=== PATIENT | male | born 1995 | race Caucasian/White ===

== ENCOUNTER 2021-03-20 03:23 | Inpatient (IN) | payer OTHER, BC ==
[2021-03-20] MEDS ORDERED: Boostrix 0.5 ML (Tdap) VIAL ONE (03:30)
[2021-03-20] MEDS ORDERED: Propofol 1,000 MG/100 ML VIAL IV ONE (03:34)
[2021-03-20 04:04] LABS: ALT (SGPT) 341 U/L (8-55); AST (SGOT) 403 U/L (5-34); Acetaminophen Less than 6.0 mcg/mL (10.0-30.0); Albumin 4.1 g/dL (3.5-5.0); Alcohol 295 mg/dL (Less than 10); Alkaline Phosphatase 91 U/L (40-110); Anion Gap 18 mmol/L (10-20); BUN (Urea Nitrogen) 10 mg/dL (8.9-20.6); Bilirubin, Total 0.5 mg/dL (0.2-1.2); Calc. Creatinine Clearance 0 mL/min (70-130); Calcium 8.1 mg/dL (7.8-10.44); Carbon Dioxide 18 mmol/L (22-29); Chloride 103 mmol/L (98-107); Globulin 2.8 g/dL (2.4-3.5); Glucose 250 mg/dL (70-105); INR-International Normal Ratio 1.1; Lipase 120 U/L (8-78); Potassium 3.4 mmol/L (3.5-5.1); Protein, Total 6.9 g/dL (6.0-8.3); Prothrombin Time 13.9 sec (12.0-14.7); Salicylate Less than 8.0 mg/dL (15.0-30.0); Sodium 136 mmol/L (136-145)
[2021-03-20 04:05] LABS: PTT 27.2 sec (22.9-36.1)
[2021-03-20] MEDS ORDERED: CEFAZOLIN 1 GM VIAL ONE (04:08)
[2021-03-20 04:16] LABS: Band 26 % (5-11); Hemoglobin 16.1 g/dL (14.0-18.0); Lymphocytes 12 % (21-51); MDiff Complete? YES; Mean Corpuscular HGB CONC 35.1 g/dL (32.0-36.0); Mean Corpuscular Hemoglobin 32.9 pg (27.0-31.0); Mean Corpuscular Volume 93.7 fL (78.0-98.0); Mean Platelet Volume 8.6 fL (7.4-10.4); Monocytes 8 % (0-10); Neutrophil 53 % (42-75); Platelet Count 256 thou/uL (130-400); RBC Distribution Width 12.4 % (11.5-14.5); White Blood Cell (WBC) Count 22.8 thou/uL (4.8-10.8)
[2021-03-20] MEDS ORDERED: Dextrose 5% in Water 1,000 ML IV PRN (04:20)
[2021-03-20] MEDS ORDERED: Dextrose 50% Abboject 50 ML SYRINGE SLOW IVP PRN (04:20)
[2021-03-20] MEDS ORDERED: Fentanyl 100 MCG/2 ML VIAL ONE (04:23)
[2021-03-20 04:29] LABS: Phosphorus 5.7 mg/dL (2.3-4.7)
[2021-03-20 04:31] LABS: Magnesium 1.8 mg/dL (1.6-2.6)
[2021-03-20 04:31] LABS: Amphetamine Not Detected (NotDetected); Barbiturates Screen Not Detected (NotDetected); Benzodiazepine Screen Not Detected (NotDetected); Cocaine Metabolite Screen Not Detected (NotDetected); Methadone Not Detected (NotDetected); Methamphetamine Not Detected (NotDetected); Opiate Screen Not Detected (NotDetected); Oxycodone Screen Not Detected (NotDetected); Phencyclidine (PCP) Not Detected (NotDetected); THC/Cannabinoid Screen Not Detected (NotDetected); Tricyclic Screen Not Detected (NotDetected)
[2021-03-20] MEDS ORDERED: Sodium Bicarb 50 MEQ/50 ML Abboject 8.4% SYRINGE ONE (04:31)
[2021-03-20 04:33] LABS: Bacteria/HPF None Seen HPF (None Seen); Bilirubin Negative (Negative); Blood, Urine 3+ (Negative); Clarity Clear (Clear); Glucose, Urine (Dipstick) Greater than 1000 mg/dL (Negative); Ketone, Urine Negative (Negative); Leukocyte Negative Leu/uL (Negative); Nitrite Negative (Negative); Protein, Urine (Dipstick) 70 mg/dL (Neg-Trace); RBC/HPF 0-3 HPF (0-3); Specific Gravity, Urine 1.009 (1.002-1.036); Squamous Epithelial 0-3 HPF (0-3); Urobilinogen Normal mg/dL (Less than 2)
[2021-03-20 04:37] LABS: Urine Culture Reflex Yes Yes
[2021-03-20 04:43] LABS: Actual Bicarbonate (HCO3a) 17.1 mEq/L (22-28); Analyzer IN Cardio ER; Base Excess (BEa) -9.8 mEq/L (-2.0 to +3.0); CO2 Tension 41.3 mmHg (35.0-45.0); Calcium, Ionized (arterial) 1.05 mmol/L (1.12-1.30); Carboxyhemoglobin (COHb) 1.3 gm% (0.0-3.0); Hemoglobin (Hb) 15.8 g/dL (14.0-18.0); O2 Tension (PaO2), arterial 147.9 mmHg (80.0-100.0); Potassium - ABG Lab 3.48 mmol/L (3.70-5.30)
[2021-03-20 04:45] LABS: ALV-art Gradient 513.475 mmHg (0-20); Puncture Site RRA; pH, Arterial 7.24 (7.35-7.45)
[2021-03-20] MEDS ORDERED: Ventilator Sedation Protocol 1 EACH FS SCH (04:45)
[2021-03-20] MEDS ORDERED: Calcium Chloride 13.6 MEQ in Sodium Chloride 0.9% 100 ML IVPB SCH (05:00)
[2021-03-20] MEDS ORDERED: Magnesium 2 GM/50 ML 2 GM in Premix Bag 1 BAG IVPB SCH (05:00)
[2021-03-20] MEDS ORDERED: manNITOL 20% 500 ML ONE ×2 (05:04→05:09)
[2021-03-20] MEDS ORDERED: Fentanyl BOLUS 250 ML IVPB PRN (05:15)
[2021-03-20] MEDS ORDERED: Propofol BOLUS 1,000 MG/100 ML VIAL IV PRN (05:15)
[2021-03-20] MEDS ORDERED: Fentanyl CADD 100 ML ONE ×2 (05:40→20:19)
[2021-03-20] MEDS: Fentanyl CADD 100 ML IV SCH ×2 (05:44→20:32)
[2021-03-20] MEDS ORDERED: CEFAZOLIN 1 GM VIAL SLOW IVP SCH (06:00)
[2021-03-20 06:40] LABS: Lactic Acid 5.2 mmol/L (0.5-2.2)
[2021-03-20] MEDS: Potassium Chloride 20 MEQ in Premix Bag 1 BAG IVPB SCH ×2 (08:00→08:35)
[2021-03-20] MEDS: Sodium Chloride 0.9% 1,000 ML IV SCH ×3 (08:01→19:58)
[2021-03-20] MEDS: Acetaminophen 500 MG TAB PO SCH ×3 (08:01→17:22)
[2021-03-20 08:18] LABS: Base Excess (BEa) -7.6 mEq/L (-2.0 to +3.0); CO2 Tension 37.2 mmHg (35.0-45.0); Calcium, Ionized (arterial) 1.19 mmol/L (1.12-1.30); Carboxyhemoglobin (COHb) 0.5 gm% (0.0-3.0); O2 Tension (PaO2), arterial 277.7 mmHg (80.0-100.0)
[2021-03-20 08:22] LABS: Puncture Site RRA
[2021-03-20] MEDS: ceFAZolin 1 GM/D5W 1 GM in Premix Bag 1 BAG IVPB SCH ×3 (09:11→22:31)
[2021-03-20 09:34] LABS: SARS-CoV-2 NAA Rapid Test Not Detected (NotDetected)
[2021-03-20] MEDS ORDERED: Mannitol 12.5 GM/50 ML SLOW IVP SCH (09:45)
[2021-03-20] MEDS: Senokot S 8.6-50 MG TAB PO SCH ×2 (09:47→19:44)
[2021-03-20] MEDS: Famotidine/PF 20 mg/2ml Vial SLOW IVP SCH ×2 (09:47→19:43)
[2021-03-20] MEDS: Polyethylene Glycol 3350 17 GM Packet PO SCH (09:47)
[2021-03-20 11:04] LABS: Sodium 139 mmol/L (136-145)
[2021-03-20 11:09] LABS: Lactic Acid 4.8 mmol/L (0.5-2.2)
[2021-03-20] MEDS: Propofol 1,000 MG/100 ML VIAL IV PRN ×5 (11:36→19:58)
[2021-03-20] MEDS: Sodium Chloride 3% 500 ML IVPB SCH (12:04)
[2021-03-20] MEDS ORDERED: Norepinephrine 8 MG/0.9% NS 250 ML IVPB SCH (13:00)
[2021-03-20 15:21] LABS: Sodium 143 mmol/L (136-145)
[2021-03-20] MEDS: Mannitol 12.5 GM/50 ML SLOW IVP SCH ×2 (15:26→22:33)
[2021-03-20 18:22] LABS: Sodium 148 mmol/L (136-145)
[2021-03-20] MEDS: Ondansetron PF 4 MG/2 ML Vial IVP PRN (19:45)
[2021-03-20 21:39] LABS: Sodium 153 mmol/L (136-145)
[2021-03-20] MEDS: Dextrose 5% in Water 1,000 ML IV SCH (23:15)
[2021-03-21] MEDS: Acetaminophen 500 MG TAB PO SCH ×5 (00:46→23:34)
[2021-03-21] MEDS: Oxazepam 10 MG CAP PO SCH ×3 (00:47→18:40)
[2021-03-21] MEDS: cefTRIAXone\\ROCEPHIN 2 GM in Sodium Chloride 0.9% 100 ML IVPB SCH (00:47)
[2021-03-21] MEDS: Propofol 1,000 MG/100 ML VIAL IV PRN ×8 (00:51→23:37)
[2021-03-21 02:20] LABS: #Lymphocytes 1.4 thou/uL (1.20-3.40); #Monocytes 0.6 thou/uL (0.11-0.59); %Basophils 0.3 % (0.0-1.0); %Eosinophils 0.1 % (0.0-10.0); %Lymphocytes 14.1 % (21.0-51.0); %Monocytes 5.5 % (0.0-10.0); Hemoglobin 15.2 g/dL (14.0-18.0); Mean Corpuscular HGB CONC 34.9 g/dL (32.0-36.0); Mean Corpuscular Hemoglobin 33.1 pg (27.0-31.0); Mean Corpuscular Volume 94.8 fL (78.0-98.0); Mean Platelet Volume 8.8 fL (7.4-10.4); Platelet Count 172 thou/uL (130-400); RBC Distribution Width 12.7 % (11.5-14.5); Red Blood Cell (RBC) Count 4.59 mill/uL (4.70-6.10)
[2021-03-21 03:20] LABS: Hemoglobin 14.6 g/dL (14.0-18.0); Mean Corpuscular HGB CONC 34.6 g/dL (32.0-36.0); Mean Corpuscular Hemoglobin 32.8 pg (27.0-31.0); Mean Corpuscular Volume 94.9 fL (78.0-98.0); Mean Platelet Volume 8.7 fL (7.4-10.4); Platelet Count 171 thou/uL (130-400); RBC Distribution Width 12.5 % (11.5-14.5); Red Blood Cell (RBC) Count 4.45 mill/uL (4.70-6.10); White Blood Cell (WBC) Count 9.4 thou/uL (4.8-10.8)
[2021-03-21] MEDS: Sodium Chloride 3% 500 ML IVPB SCH (03:20)
[2021-03-21] MEDS: Mannitol 12.5 GM/50 ML SLOW IVP SCH (04:00)
[2021-03-21 04:03] LABS: Band 6 % (5-11); Lymphocytes 18 % (21-51); MDiff Complete? YES; Monocytes 1 % (0-10); Neutrophil 75 % (42-75)
[2021-03-21 05:09] LABS: Anion Gap 14 mmol/L (10-20); BUN (Urea Nitrogen) 12 mg/dL (8.9-20.6); CK (CPK) 3278 U/L (30-200); Calc. Creatinine Clearance 136 mL/min (70-130); Calcium 10.3 mg/dL (7.8-10.44); Carbon Dioxide 23 mmol/L (22-29); Chloride 132 mmol/L (98-107); Glucose 123 mg/dL (70-105); Magnesium 2.8 mg/dL (1.6-2.6); Phosphorus Less than 1.0 mg/dL (2.3-4.7); Potassium 3.7 mmol/L (3.5-5.1); Sodium 165 mmol/L (136-145)
[2021-03-21] MEDS ORDERED: Fentanyl 100 MCG/2 ML VIAL SLOW IVP PRN (05:09)
[2021-03-21] MEDS: Fentanyl CADD 100 ML IV SCH ×2 (05:23→14:14)
[2021-03-21] MEDS: Lactated Ringer's 1,000 ML IV SCH ×2 (09:48→16:42)
[2021-03-21 10:01] LABS: Sodium 169 mmol/L (136-145)
[2021-03-21] MEDS ORDERED: Vecuronium Bromide 50 MG in Sodium Chloride 0.9% 250 ML 250 ML IV SCH (10:30)
[2021-03-21] MEDS ORDERED: Saccharomyces boulardii 250 MG CAP PO SCH (11:00)
[2021-03-21] MEDS: Famotidine/PF 20 mg/2ml Vial SLOW IVP SCH ×2 (11:08→21:38)
[2021-03-21] MEDS: Folic Acid 1 MG TAB PO SCH (11:21)
[2021-03-21] MEDS: Thiamine 100 MG TAB PO SCH (11:21)
[2021-03-21] MEDS: Senokot S 8.6-50 MG TAB PO SCH ×2 (11:21→21:38)
[2021-03-21] MEDS: Multivitamin W/ Minerals 1 TAB PO SCH (11:21)
[2021-03-21] MEDS: Polyethylene Glycol 3350 17 GM Packet PO SCH (11:23)
[2021-03-21 11:58] LABS: Anion Gap 15 mmol/L (10-20); BUN (Urea Nitrogen) 14 mg/dL (8.9-20.6); Calc. Creatinine Clearance 124 mL/min (70-130); Carbon Dioxide 19 mmol/L (22-29); Chloride 139 mmol/L (98-107); Glucose 126 mg/dL (70-105); Potassium 3.1 mmol/L (3.5-5.1); Sodium 170 mmol/L (136-145)
[2021-03-21 16:32] LABS: Sodium 168 mmol/L (136-145)
[2021-03-21] MEDS ORDERED: Lactated Ringer's 1,000 ML IV SCH (17:00)
[2021-03-21 19:37] LABS: Sodium 169 mmol/L (136-145)
[2021-03-21] MEDS: hydrALAZINE 20 MG/ML VIAL SLOW IVP PRN (19:41)
[2021-03-21 20:19] LABS: #Lymphocytes 1.4 thou/uL (1.20-3.40); #Monocytes 0.5 thou/uL (0.11-0.59); #Neutrophils 10.1 thou/uL (1.40-6.50); %Basophils 0.4 % (0.0-1.0); %Eosinophils 0.1 % (0.0-10.0); %Lymphocytes 11.5 % (21.0-51.0); %Monocytes 3.8 % (0.0-10.0); %Neutrophils 84.2 % (42.0-75.0); Hemoglobin 14.5 g/dL (14.0-18.0); Mean Corpuscular Hemoglobin 32.7 pg (27.0-31.0); Mean Corpuscular Volume 96.2 fL (78.0-98.0); Mean Platelet Volume 9.1 fL (7.4-10.4); Platelet Count 159 thou/uL (130-400); RBC Distribution Width 12.9 % (11.5-14.5); Red Blood Cell (RBC) Count 4.43 mill/uL (4.70-6.10)
[2021-03-21 20:30] LABS: Anion Gap 20 mmol/L (10-20); BUN (Urea Nitrogen) 14 mg/dL (8.9-20.6); Calc. Creatinine Clearance 132 mL/min (70-130); Carbon Dioxide 20 mmol/L (22-29); Chloride 133 mmol/L (98-107); Glucose 168 mg/dL (70-105); Magnesium 2.3 mg/dL (1.6-2.6); Potassium 4.8 mmol/L (3.5-5.1); Sodium 168 mmol/L (136-145)
[2021-03-21] MEDS: Ondansetron PF 4 MG/2 ML Vial IVP PRN (21:38)
[2021-03-21 23:06] LABS: Sodium 167 mmol/L (136-145)
[2021-03-21 23:28] LABS: CKMB 2.5 ng/mL (0-6.6)
[2021-03-22] MEDS: Oxazepam 10 MG CAP PO SCH ×3 (00:09→17:37)
[2021-03-22] MEDS: cefTRIAXone\\ROCEPHIN 2 GM in Sodium Chloride 0.9% 100 ML IVPB SCH (00:59)
[2021-03-22 02:21] LABS: Sodium 167 mmol/L (136-145)
[2021-03-22 05:18] LABS: #Lymphocytes 1.5 thou/uL (1.20-3.40); #Monocytes 0.3 thou/uL (0.11-0.59); #Neutrophils 7.4 thou/uL (1.40-6.50); %Basophils 0.2 % (0.0-1.0); %Eosinophils 0.4 % (0.0-10.0); %Lymphocytes 16.6 % (21.0-51.0); %Neutrophils 79.9 % (42.0-75.0); Hemoglobin 13.8 g/dL (14.0-18.0); Mean Corpuscular HGB CONC 33.1 g/dL (32.0-36.0); Mean Corpuscular Hemoglobin 31.4 pg (27.0-31.0); Mean Corpuscular Volume 94.9 fL (78.0-98.0); Mean Platelet Volume 8.8 fL (7.4-10.4); Platelet Count 149 thou/uL (130-400); RBC Distribution Width 12.7 % (11.5-14.5); Red Blood Cell (RBC) Count 4.38 mill/uL (4.70-6.10); White Blood Cell (WBC) Count 9.2 thou/uL (4.8-10.8)
[2021-03-22] MEDS: Propofol 1,000 MG/100 ML VIAL IV PRN (05:26)
[2021-03-22] MEDS: Acetaminophen 500 MG TAB PO SCH ×3 (05:26→17:37)
[2021-03-22] MEDS: Fentanyl CADD 100 ML IV SCH ×2 (05:26→20:30)
[2021-03-22 05:42] LABS: Anion Gap 16 mmol/L (10-20); BUN (Urea Nitrogen) 11 mg/dL (8.9-20.6); Calc. Creatinine Clearance 142 mL/min (70-130); Carbon Dioxide 22 mmol/L (22-29); Chloride 134 mmol/L (98-107); Glucose 126 mg/dL (70-105); Potassium 3.5 mmol/L (3.5-5.1); Sodium 168 mmol/L (136-145)
[2021-03-22] MEDS: Lactated Ringer's 1,000 ML IV SCH (05:44)
[2021-03-22 05:49] LABS: CK (CPK) 1814 U/L (30-200); Magnesium 2.3 mg/dL (1.6-2.6)
[2021-03-22 05:58] LABS: Phosphorus 1.3 mg/dL (2.3-4.7)
[2021-03-22] MEDS ORDERED: Dextrose 5% in Water 1,000 ML IV SCH ×2 (08:15→13:00)
[2021-03-22] MEDS ORDERED: D5 1/2 NS w/20 mEq KCL 1,000 ML IV SCH (08:30)
[2021-03-22 10:01] LABS: Sodium 170 mmol/L (136-145)
[2021-03-22] MEDS: Multivitamin W/ Minerals 1 TAB PO SCH (10:04)
[2021-03-22] MEDS: Polyethylene Glycol 3350 17 GM Packet PO SCH (10:04)
[2021-03-22] MEDS: Senokot S 8.6-50 MG TAB PO SCH ×2 (10:04→20:12)
[2021-03-22] MEDS: Famotidine/PF 20 mg/2ml Vial SLOW IVP SCH ×2 (10:04→20:12)
[2021-03-22] MEDS: Thiamine 100 MG TAB PO SCH (10:05)
[2021-03-22] MEDS: Saccharomyces boulardii 250 MG CAP PO SCH (10:05)
[2021-03-22] MEDS: Folic Acid 1 MG TAB PO SCH (10:05)
[2021-03-22 14:00] LABS: Anion Gap 16 mmol/L (10-20); BUN (Urea Nitrogen) 11 mg/dL (8.9-20.6); Calc. Creatinine Clearance 131 mL/min (70-130); Calcium 9.8 mg/dL (7.8-10.44); Carbon Dioxide 25 mmol/L (22-29); Chloride 132 mmol/L (98-107); Glucose 148 mg/dL (70-105); Potassium 3.5 mmol/L (3.5-5.1); Sodium 169 mmol/L (136-145)
[2021-03-22] MEDS ORDERED: Piperacillin/Tazobactam 3.375 GM in Dextrose 5% in Water 100 ML IVPB SCH (15:15)
[2021-03-22 15:34] LABS: Hemoglobin 14.3 g/dL (14.0-18.0); Mean Corpuscular HGB CONC 34.7 g/dL (32.0-36.0); Mean Corpuscular Hemoglobin 33.1 pg (27.0-31.0); Mean Corpuscular Volume 95.4 fL (78.0-98.0); Mean Platelet Volume 8.7 fL (7.4-10.4); Platelet Count 152 thou/uL (130-400); RBC Distribution Width 12.6 % (11.5-14.5); Red Blood Cell (RBC) Count 4.33 mill/uL (4.70-6.10); White Blood Cell (WBC) Count 8.6 thou/uL (4.8-10.8)
[2021-03-22 15:44] LABS: INR-International Normal Ratio 1.2; Prothrombin Time 15.7 sec (12.0-14.7)
[2021-03-22 15:45] LABS: PTT 36.9 sec (22.9-36.1)
[2021-03-22 15:50] LABS: Lactic Acid 2.1 mmol/L (0.5-2.2)
[2021-03-22 15:58] LABS: CKMB 2.2 ng/mL (0-6.6)
[2021-03-22 16:15] LABS: Actual Bicarbonate (HCO3a) 23.7 mEq/L (22-28); Base Excess (BEa) -0.5 mEq/L (-2.0 to +3.0); CO2 Tension 37.7 mmHg (35.0-45.0); Calcium, Ionized (arterial) 1.23 mmol/L (1.12-1.30); Carboxyhemoglobin (COHb) 0.7 gm% (0.0-3.0); Hemoglobin (Hb) 14.7 g/dL (14.0-18.0); O2 Tension (PaO2), arterial 69.7 mmHg (80.0-100.0); Potassium - ABG Lab 3.56 mmol/L (3.70-5.30); pH, Arterial 7.42 (7.35-7.45)
[2021-03-22 16:16] LABS: ALV-art Gradient 168.375 mmHg (0-20); Puncture Site RBA
[2021-03-22 16:19] LABS: ALT (SGPT) 108 U/L (8-55); AST (SGOT) 54 U/L (5-34); Albumin 3.9 g/dL (3.5-5.0); Alkaline Phosphatase 52 U/L (40-110); Anion Gap 16 mmol/L (10-20); BUN (Urea Nitrogen) 11 mg/dL (8.9-20.6); Bilirubin, Direct 0.5 mg/dL (0.1-0.3); Bilirubin, Total 1.1 mg/dL (0.2-1.2); Calc. Creatinine Clearance 122 mL/min (70-130); Calcium 9.4 mg/dL (7.8-10.44); Carbon Dioxide 26 mmol/L (22-29); Chloride 134 mmol/L (98-107); Globulin 2.4 g/dL (2.4-3.5); Glucose 150 mg/dL (70-105); Lipase 15 U/L (8-78); Magnesium 2.1 mg/dL (1.6-2.6); Phosphorus 2.8 mg/dL (2.3-4.7); Potassium 3.6 mmol/L (3.5-5.1); Protein, Total 6.3 g/dL (6.0-8.3); Sodium 172 mmol/L (136-145)
[2021-03-22 16:26] LABS: Band 61 % (5-11); Lymphocytes 21 % (21-51); MDiff Complete? YES; Monocytes 3 % (0-10); Neutrophil 13 % (42-75); Platelet Morphology Comment Appears Adequate; RBC Morphology Normal; Reactive Lymphocytes 2 % (0-10)
[2021-03-22 19:33] LABS: Hemoglobin 14.2 g/dL (14.0-18.0); Mean Corpuscular HGB CONC 34.6 g/dL (32.0-36.0); Mean Corpuscular Hemoglobin 33.1 pg (27.0-31.0); Mean Corpuscular Volume 95.7 fL (78.0-98.0); Mean Platelet Volume 9.1 fL (7.4-10.4); Platelet Count 166 thou/uL (130-400); RBC Distribution Width 12.6 % (11.5-14.5); Red Blood Cell (RBC) Count 4.29 mill/uL (4.70-6.10); White Blood Cell (WBC) Count 9.4 thou/uL (4.8-10.8)
[2021-03-22 19:43] LABS: Hemoglobin A1c 4.6 % (4.0-6.0)
[2021-03-22 19:44] LABS: INR-International Normal Ratio 1.2; Prothrombin Time 15.5 sec (12.0-14.7)
[2021-03-22 19:45] LABS: PTT 32.6 sec (22.9-36.1)
[2021-03-22] MEDS: hydrALAZINE 20 MG/ML VIAL SLOW IVP PRN (19:45)
[2021-03-22 19:51] LABS: Band 28 % (5-11); Lymphocytes 19 % (21-51); MDiff Complete? YES; Monocytes 2 % (0-10); Neutrophil 45 % (42-75); Reactive Lymphocytes 5 % (0-10)
[2021-03-22 20:08] LABS: CKMB 2.5 ng/mL (0-6.6)
[2021-03-22 20:14] LABS: ALT (SGPT) 99 U/L (8-55); AST (SGOT) 49 U/L (5-34); Albumin 3.7 g/dL (3.5-5.0); Alkaline Phosphatase 51 U/L (40-110); Anion Gap 17 mmol/L (10-20); BUN (Urea Nitrogen) 12 mg/dL (8.9-20.6); Bilirubin, Direct 0.6 mg/dL (0.1-0.3); Bilirubin, Total 1.5 mg/dL (0.2-1.2); Calc. Creatinine Clearance 111 mL/min (70-130); Calcium 9.7 mg/dL (7.8-10.44); Carbon Dioxide 23 mmol/L (22-29); Chloride 132 mmol/L (98-107); Globulin 3.1 g/dL (2.4-3.5); Glucose 156 mg/dL (70-105); Lipase 13 U/L (8-78); Magnesium 2.1 mg/dL (1.6-2.6); Phosphorus 2.7 mg/dL (2.3-4.7); Potassium 3.3 mmol/L (3.5-5.1); Protein, Total 6.8 g/dL (6.0-8.3); Sodium 169 mmol/L (136-145)
[2021-03-22] MEDS: Piperacillin/Tazobactam 3.375 GM in Dextrose 5% in Water 100 ML IVPB SCH (20:26)
[2021-03-22] MEDS ORDERED: Norepinephrine 8 MG/0.9% NS 250 ML ONE (21:52)
[2021-03-22 22:34] LABS: Actual Bicarbonate (HCO3a) 25.2 mEq/L (22-28); Base Excess (BEa) 0.2 mEq/L (-2.0 to +3.0); CO2 Tension 42.1 mmHg (35.0-45.0); Calcium, Ionized (arterial) 1.18 mmol/L (1.12-1.30); Carboxyhemoglobin (COHb) 0.1 gm% (0.0-3.0); Hemoglobin (Hb) 14.2 g/dL (14.0-18.0); Potassium - ABG Lab 3.35 mmol/L (3.70-5.30)
[2021-03-22 22:36] LABS: ALV-art Gradient 486.375 mmHg (0-20); Puncture Site Arterial Line
[2021-03-22] MEDS: Insulin Regular 300 UNITS/3 ML VIAL SC PRN (23:23)
[2021-03-23] MEDS: Acetaminophen 500 MG TAB PO SCH ×5 (00:24→23:01)
[2021-03-23] MEDS: hydrALAZINE 20 MG/ML VIAL SLOW IVP PRN ×2 (00:25→04:59)
[2021-03-23] MEDS: Ondansetron PF 4 MG/2 ML Vial IVP PRN (00:25)
[2021-03-23] MEDS: Oxazepam 10 MG CAP PO SCH (00:26)
[2021-03-23] MEDS: Dextrose 5% in Water 1,000 ML IV SCH (01:10)
[2021-03-23 03:42] LABS: Hemoglobin 13.3 g/dL (14.0-18.0); Mean Corpuscular HGB CONC 34.4 g/dL (32.0-36.0); Mean Corpuscular Hemoglobin 33.2 pg (27.0-31.0); Mean Corpuscular Volume 96.3 fL (78.0-98.0); Mean Platelet Volume 9.1 fL (7.4-10.4); Platelet Count 166 thou/uL (130-400); RBC Distribution Width 12.6 % (11.5-14.5); Red Blood Cell (RBC) Count 4.02 mill/uL (4.70-6.10); White Blood Cell (WBC) Count 8.9 thou/uL (4.8-10.8)
[2021-03-23 03:51] LABS: ALT (SGPT) 88 U/L (8-55); AST (SGOT) 43 U/L (5-34); Albumin 3.5 g/dL (3.5-5.0); Alkaline Phosphatase 47 U/L (40-110); Anion Gap 11 mmol/L (10-20); BUN (Urea Nitrogen) 13 mg/dL (8.9-20.6); Bilirubin, Direct 0.5 mg/dL (0.1-0.3); Bilirubin, Total 1.2 mg/dL (0.2-1.2); Calc. Creatinine Clearance 117 mL/min (70-130); Calcium 9.2 mg/dL (7.8-10.44); Carbon Dioxide 29 mmol/L (22-29); Chloride 129 mmol/L (98-107); Globulin 3.1 g/dL (2.4-3.5); Glucose 187 mg/dL (70-105); Lipase 14 U/L (8-78); Magnesium 1.9 mg/dL (1.6-2.6); Phosphorus 3.7 mg/dL (2.3-4.7); Potassium 3.2 mmol/L (3.5-5.1); Protein, Total 6.6 g/dL (6.0-8.3); Sodium 166 mmol/L (136-145)
[2021-03-23 04:07] LABS: INR-International Normal Ratio 1.2; Prothrombin Time 15.2 sec (12.0-14.7)
[2021-03-23 04:08] LABS: PTT 34.4 sec (22.9-36.1)
[2021-03-23 04:21] LABS: CKMB 2.4 ng/mL (0-6.6)
[2021-03-23] MEDS: Ondansetron PF 4 MG/2 ML Vial IVP SCH ×4 (04:59→21:16)
[2021-03-23 05:06] LABS: Band 40 % (5-11); Lymphocytes 16 % (21-51); MDiff Complete? YES; Monocytes 2 % (0-10); Neutrophil 42 % (42-75)
[2021-03-23] MEDS: Insulin Regular 300 UNITS/3 ML VIAL SC PRN (05:09)
[2021-03-23] MEDS: Piperacillin/Tazobactam 3.375 GM in Dextrose 5% in Water 100 ML IVPB SCH ×3 (05:15→20:13)
[2021-03-23 06:19] LABS: Bacteria/HPF None Seen HPF (None Seen); Bilirubin Negative (Negative); Blood, Urine 3+ (Negative); Clarity Clear (Clear); Glucose, Urine (Dipstick) Greater than 1000 mg/dL (Negative); Ketone, Urine Negative (Negative); Leukocyte Negative Leu/uL (Negative); Nitrite Negative (Negative); Protein, Urine (Dipstick) 100 mg/dL (Neg-Trace); Specific Gravity, Urine 1.037 (1.002-1.036); Squamous Epithelial 0-3 HPF (0-3); Urobilinogen Normal mg/dL (Less than 2); WBC/HPF 0-3 HPF (0-3)
[2021-03-23] MEDS: D5 1/2 NS w/20 mEq KCL 1,000 ML IV SCH ×3 (07:34→21:16)
[2021-03-23 07:51] LABS: Actual Bicarbonate (HCO3a) 20.2 mEq/L (22-28); Base Excess (BEa) -3.6 mEq/L (-2.0 to +3.0); CO2 Tension 32.7 mmHg (35.0-45.0); Calcium, Ionized (arterial) 1.17 mmol/L (1.12-1.30); Carboxyhemoglobin (COHb) 0.2 gm% (0.0-3.0); Hemoglobin (Hb) 13.6 g/dL (14.0-18.0); O2 Tension (PaO2), arterial 328.5 mmHg (80.0-100.0); Potassium - ABG Lab 3.24 mmol/L (3.70-5.30); pH, Arterial 7.41 (7.35-7.45)
[2021-03-23 07:56] LABS: ALV-art Gradient 343.625 mmHg (0-20); Puncture Site Arterial Line
[2021-03-23] MEDS: Multivitamin W/ Minerals 1 TAB PO SCH (09:05)
[2021-03-23] MEDS: Saccharomyces boulardii 250 MG CAP PO SCH (09:05)
[2021-03-23] MEDS: Folic Acid 1 MG TAB PO SCH (09:05)
[2021-03-23] MEDS: Thiamine 100 MG TAB PO SCH (09:05)
[2021-03-23] MEDS: Famotidine/PF 20 mg/2ml Vial SLOW IVP SCH ×2 (09:05→21:16)
[2021-03-23] MEDS: Polyethylene Glycol 3350 17 GM Packet PO SCH (09:06)
[2021-03-23] MEDS: Senokot S 8.6-50 MG TAB PO SCH ×2 (09:06→20:25)
[2021-03-23 10:43] LABS: Hemoglobin 12.9 g/dL (14.0-18.0); Mean Corpuscular HGB CONC 32.9 g/dL (32.0-36.0); Mean Corpuscular Hemoglobin 31.6 pg (27.0-31.0); Mean Corpuscular Volume 96.3 fL (78.0-98.0); Mean Platelet Volume 9.1 fL (7.4-10.4); Platelet Count 185 thou/uL (130-400); RBC Distribution Width 12.7 % (11.5-14.5); Red Blood Cell (RBC) Count 4.09 mill/uL (4.70-6.10); White Blood Cell (WBC) Count 9.7 thou/uL (4.8-10.8)
[2021-03-23 10:44] LABS: Actual Bicarbonate (HCO3a) 25.1 mEq/L (22-28); Base Excess (BEa) 0.2 mEq/L (-2.0 to +3.0); CO2 Tension 41.7 mmHg (35.0-45.0); Calcium, Ionized (arterial) 1.13 mmol/L (1.12-1.30); Carboxyhemoglobin (COHb) 0.3 gm% (0.0-3.0); Hemoglobin (Hb) 13.4 g/dL (14.0-18.0); O2 Tension (PaO2), arterial 327.3 mmHg (80.0-100.0); Potassium - ABG Lab 3.41 mmol/L (3.70-5.30)
[2021-03-23 10:51] LABS: INR-International Normal Ratio 1.3; PTT 38.9 sec (22.9-36.1); Prothrombin Time 16.4 sec (12.0-14.7)
[2021-03-23 10:55] LABS: Puncture Site Arterial Line
[2021-03-23 10:56] LABS: ALV-art Gradient 333.575 mmHg (0-20)
[2021-03-23 10:58] LABS: Band 33 % (5-11); Lymphocytes 14 % (21-51); MDiff Complete? YES; Monocytes 5 % (0-10); Neutrophil 48 % (42-75); Platelet Morphology Comment Appears Adequate; RBC Morphology Normal
[2021-03-23 11:04] LABS: CKMB 2.9 ng/mL (0-6.6)
[2021-03-23 11:13] LABS: ALT (SGPT) 80 U/L (8-55); AST (SGOT) 45 U/L (5-34); Albumin 3.5 g/dL (3.5-5.0); Alkaline Phosphatase 47 U/L (40-110); Anion Gap 9 mmol/L (10-20); BUN (Urea Nitrogen) 13 mg/dL (8.9-20.6); Bilirubin, Direct 0.5 mg/dL (0.1-0.3); Bilirubin, Total 1.1 mg/dL (0.2-1.2); Calc. Creatinine Clearance 132 mL/min (70-130); Calcium 8.9 mg/dL (7.8-10.44); Carbon Dioxide 31 mmol/L (22-29); Chloride 126 mmol/L (98-107); Globulin 2.9 g/dL (2.4-3.5); Glucose 150 mg/dL (70-105); Lipase 13 U/L (8-78); Magnesium 1.8 mg/dL (1.6-2.6); Phosphorus 4.3 mg/dL (2.3-4.7); Potassium 3.3 mmol/L (3.5-5.1); Protein, Total 6.4 g/dL (6.0-8.3); Sodium 163 mmol/L (136-145)
[2021-03-23 13:04] VITALS: BMI 36.2
[2021-03-23 16:02] LABS: INR-International Normal Ratio 1.2; PTT 33.3 sec (22.9-36.1); Prothrombin Time 15.4 sec (12.0-14.7)
[2021-03-23 16:18] LABS: Hemoglobin 12.9 g/dL (14.0-18.0); Mean Corpuscular HGB CONC 34.6 g/dL (32.0-36.0); Mean Corpuscular Hemoglobin 33.3 pg (27.0-31.0); Mean Corpuscular Volume 96.4 fL (78.0-98.0); Mean Platelet Volume 9.5 fL (7.4-10.4); Platelet Count 184 thou/uL (130-400); RBC Distribution Width 12.6 % (11.5-14.5); Red Blood Cell (RBC) Count 3.87 mill/uL (4.70-6.10); White Blood Cell (WBC) Count 9.6 thou/uL (4.8-10.8)
[2021-03-23 16:24] LABS: CKMB 2.9 ng/mL (0-6.6)
[2021-03-23 16:30] LABS: Band 25 % (5-11); Lymphocytes 17 % (21-51); MDiff Complete? YES; Monocytes 2 % (0-10); Neutrophil 51 % (42-75); Platelet Morphology Comment Appears Adequate; RBC Morphology Normal; Reactive Lymphocytes 5 % (0-10)
[2021-03-23 16:32] LABS: ALT (SGPT) 78 U/L (8-55); AST (SGOT) 49 U/L (5-34); Albumin 3.4 g/dL (3.5-5.0); Alkaline Phosphatase 47 U/L (40-110); Anion Gap 17 mmol/L (10-20); BUN (Urea Nitrogen) 14 mg/dL (8.9-20.6); Bilirubin, Direct 0.3 mg/dL (0.1-0.3); Calc. Creatinine Clearance 137 mL/min (70-130); Carbon Dioxide 24 mmol/L (22-29); Chloride 126 mmol/L (98-107); Globulin 2.4 g/dL (2.4-3.5); Glucose 149 mg/dL (70-105); Lipase 15 U/L (8-78); Magnesium 1.6 mg/dL (1.6-2.6); Phosphorus 3.8 mg/dL (2.3-4.7); Potassium 3.7 mmol/L (3.5-5.1); Protein, Total 5.8 g/dL (6.0-8.3); Sodium 163 mmol/L (136-145)
[2021-03-23 17:25] LABS: Bacteria/HPF None Seen HPF (None Seen); Bilirubin Negative (Negative); Blood, Urine 3+ (Negative); Clarity Turbid (Clear); Glucose, Urine (Dipstick) Normal (Negative); Ketone, Urine Negative (Negative); Leukocyte 250 Leu/uL (Negative); Nitrite Negative (Negative); Protein, Urine (Dipstick) 100 mg/dL (Neg-Trace); Specific Gravity, Urine 1.036 (1.002-1.036); Squamous Epithelial 0-3 HPF (0-3); WBC/HPF 21-50 HPF (0-3); pH, Urine 6.5 (5.0-9.0)
[2021-03-23] MEDS ORDERED: Heparin 5,000 UNITS/ML VIAL SC SCH (19:45)
[2021-03-23 21:40] LABS: Hemoglobin 12.5 g/dL (14.0-18.0); Mean Corpuscular HGB CONC 33.1 g/dL (32.0-36.0); Mean Corpuscular Hemoglobin 31.9 pg (27.0-31.0); Mean Corpuscular Volume 96.5 fL (78.0-98.0); Platelet Count 181 thou/uL (130-400); RBC Distribution Width 12.4 % (11.5-14.5); Red Blood Cell (RBC) Count 3.91 mill/uL (4.70-6.10); White Blood Cell (WBC) Count 10.8 thou/uL (4.8-10.8)
[2021-03-23 21:45] LABS: INR-International Normal Ratio 1.2; PTT 41.5 sec (22.9-36.1); Prothrombin Time 15.5 sec (12.0-14.7)
[2021-03-23 21:54] LABS: Band 20 % (5-11); Eosinophils 2 % (0-10); Lymphocytes 13 % (21-51); MDiff Complete? YES; Monocytes 1 % (0-10); Neutrophil 64 % (42-75)
[2021-03-23 22:12] LABS: ALT (SGPT) 69 U/L (8-55); AST (SGOT) 45 U/L (5-34); Albumin 3.3 g/dL (3.5-5.0); Alkaline Phosphatase 48 U/L (40-110); Anion Gap 14 mmol/L (10-20); BUN (Urea Nitrogen) 15 mg/dL (8.9-20.6); Bilirubin, Direct 0.4 mg/dL (0.1-0.3); Bilirubin, Total 0.9 mg/dL (0.2-1.2); Calc. Creatinine Clearance 137 mL/min (70-130); Calcium 8.4 mg/dL (7.8-10.44); Carbon Dioxide 25 mmol/L (22-29); Chloride 125 mmol/L (98-107); Globulin 2.9 g/dL (2.4-3.5); Glucose 152 mg/dL (70-105); Lipase 17 U/L (8-78); Magnesium 1.5 mg/dL (1.6-2.6); Phosphorus 3.3 mg/dL (2.3-4.7); Potassium 3.4 mmol/L (3.5-5.1); Protein, Total 6.2 g/dL (6.0-8.3); Sodium 161 mmol/L (136-145)
[2021-03-24] MEDS: Lorazepam 2 MG/ML VIAL SLOW IVP PRN ×2 (00:35→06:17)
[2021-03-24] MEDS: Fentanyl 100 MCG/2 ML VIAL SLOW IVP PRN ×4 (02:06→21:37)
[2021-03-24] MEDS: Morphine 4 MG/ML VIAL SLOW IVP SCH ×9 (02:08→13:25)
[2021-03-24] MEDS: Piperacillin/Tazobactam 3.375 GM in Dextrose 5% in Water 100 ML IVPB SCH ×2 (02:18→11:42)
[2021-03-24 03:46] LABS: Actual Bicarbonate (HCO3a) 23.1 mEq/L (22-28); Base Excess (BEa) 1.1 mEq/L (-2.0 to +3.0); CO2 Tension 29.2 mmHg (35.0-45.0); Calcium, Ionized (arterial) 1.08 mmol/L (1.12-1.30); Carboxyhemoglobin (COHb) 0.1 gm% (0.0-3.0); Hemoglobin (Hb) 12.5 g/dL (14.0-18.0); O2 Tension (PaO2), arterial 84.8 mmHg (80.0-100.0); Potassium - ABG Lab 3.18 mmol/L (3.70-5.30); pH, Arterial 7.52 (7.35-7.45)
[2021-03-24] MEDS: Ondansetron PF 4 MG/2 ML Vial IVP SCH ×2 (03:49→11:37)
[2021-03-24 04:14] LABS: Hemoglobin 11.8 g/dL (14.0-18.0); Mean Corpuscular HGB CONC 33.8 g/dL (32.0-36.0); Mean Corpuscular Hemoglobin 32.4 pg (27.0-31.0); Mean Corpuscular Volume 95.8 fL (78.0-98.0); Platelet Count 181 thou/uL (130-400); RBC Distribution Width 12.5 % (11.5-14.5); Red Blood Cell (RBC) Count 3.65 mill/uL (4.70-6.10); White Blood Cell (WBC) Count 10.1 thou/uL (4.8-10.8)
[2021-03-24 04:16] LABS: INR-International Normal Ratio 1.2; Prothrombin Time 15.3 sec (12.0-14.7)
[2021-03-24 04:20] LABS: Puncture Site Arterial Line
[2021-03-24 04:36] LABS: Band 17 % (5-11); Eosinophils 3 % (0-10); Lymphocytes 20 % (21-51); MDiff Complete? YES; Monocytes 2 % (0-10); Neutrophil 58 % (42-75)
[2021-03-24] MEDS: Acetaminophen 500 MG TAB PO SCH ×2 (05:19→13:29)
[2021-03-24 05:21] VITALS: BP 188/75
[2021-03-24 06:13] VITALS: TEMP 101.1
[2021-03-24 06:15] LABS: CKMB 3.8 ng/mL (0-6.6); Troponin I 0.021 ng/mL (< 0.028)
[2021-03-24 06:16] LABS: ALT (SGPT) 66 U/L (8-55); AST (SGOT) 49 U/L (5-34); Albumin 3.2 g/dL (3.5-5.0); Alkaline Phosphatase 46 U/L (40-110); Anion Gap 11 mmol/L (10-20); BUN (Urea Nitrogen) 16 mg/dL (8.9-20.6); Bilirubin, Direct 0.5 mg/dL (0.1-0.3); Calc. Creatinine Clearance 138 mL/min (70-130); Calcium 8.4 mg/dL (7.8-10.44); Carbon Dioxide 26 mmol/L (22-29); Chloride 124 mmol/L (98-107); Globulin 2.9 g/dL (2.4-3.5); Glucose 159 mg/dL (70-105); Lipase 21 U/L (8-78); Magnesium 1.3 mg/dL (1.6-2.6); Phosphorus 1.9 mg/dL (2.3-4.7); Potassium 3.1 mmol/L (3.5-5.1); Protein, Total 6.1 g/dL (6.0-8.3); Sodium 158 mmol/L (136-145)
[2021-03-24] MEDS: Famotidine/PF 20 mg/2ml Vial SLOW IVP SCH (11:34)
[2021-03-24] MEDS: Multivitamin W/ Minerals 1 TAB PO SCH (11:36)
[2021-03-24] MEDS: Senokot S 8.6-50 MG TAB PO SCH (11:36)
[2021-03-24] MEDS: Folic Acid 1 MG TAB PO SCH (11:36)
[2021-03-24] MEDS: Saccharomyces boulardii 250 MG CAP PO SCH (11:36)
[2021-03-24] MEDS: Polyethylene Glycol 3350 17 GM Packet PO SCH (11:36)
[2021-03-24] MEDS: Thiamine 100 MG TAB PO SCH (11:37)
== END 2021-03-24 14:30 | disposition expired | DRG 955 ==
LOC: ERS 03:23 → CCU 04:20 → ONC 03-24 08:56
PROVIDERS: ADMIT Surgery; ATTEND Surgery
PROC: 00H632Z Insertion of Monitoring Device into Cerebral Ventricle, Percutaneous Approach (ICD-10-PCS; principal; 2021-03-20)
PROC: 4A103BD Monitoring of Intracranial Pressure, Percutaneous Approach (ICD-10-PCS; 2021-03-20)
PROC: 03HY32Z Insertion of Monitoring Device into Upper Artery, Percutaneous Approach (ICD-10-PCS; 2021-03-20)
PROC: 4A133B1 Monitoring of Arterial Pressure, Peripheral, Percutaneous Approach (ICD-10-PCS; 2021-03-20)
PROC: 4A133J1 Monitoring of Arterial Pulse, Peripheral, Percutaneous Approach (ICD-10-PCS; 2021-03-20)
PROC: 3E033XZ Introduction of Vasopressor into Peripheral Vein, Percutaneous Approach (ICD-10-PCS; 2021-03-20)
PROC: 5A1945Z Respiratory Ventilation, 24-96 Consecutive Hours (ICD-10-PCS; 2021-03-20)
PROC: 0BH18EZ Insertion of Endotracheal Airway into Trachea, Via Natural or Artificial Opening Endoscopic (ICD-10-PCS; 2021-03-20)
PROC: 009630Z Drainage of Cerebral Ventricle with Drainage Device, Percutaneous Approach (ICD-10-PCS; 2021-03-21)
PROC: 02HV33Z Insertion of Infusion Device into Superior Vena Cava, Percutaneous Approach (ICD-10-PCS; 2021-03-21)
PROC: 30233D1 Transfusion of Nonautologous Pathogen Reduced Cryoprecipitated Fibrinogen Complex into Peripheral Vein, Percutaneous Approach (ICD-10-PCS; 2021-03-22)
DX: S06.6X9A Traumatic subarachnoid hemorrhage with loss of consciousness of unspecified duration, initial encounter (principal); S32.9XXA Fracture of unspecified parts of lumbosacral spine and pelvis, initial encounter for closed fracture; J96.00 Acute respiratory failure, unspecified whether with hypoxia or hypercapnia; S32.511A Fracture of superior rim of right pubis, initial encounter for closed fracture; S12.400A Unspecified displaced fracture of fifth cervical vertebra, initial encounter for closed fracture; S12.500A Unspecified displaced fracture of sixth cervical vertebra, initial encounter for closed fracture; S12.600A Unspecified displaced fracture of seventh cervical vertebra, initial encounter for closed fracture; S22.019A Unspecified fracture of first thoracic vertebra, initial encounter for closed fracture; S32.301A Unspecified fracture of right ilium, initial encounter for closed fracture; N17.9 Acute kidney failure, unspecified; E23.2 Diabetes insipidus; Z51.5 Encounter for palliative care; F10.129 Alcohol abuse with intoxication, unspecified; S06.5X9A Traumatic subdural hemorrhage with loss of consciousness of unspecified duration, initial encounter; S02.119A Unspecified fracture of occiput, initial encounter for closed fracture; E83.42 Hypomagnesemia; E83.51 Hypocalcemia; S06.1X9A Traumatic cerebral edema with loss of consciousness of unspecified duration, initial encounter; G93.2 Benign intracranial hypertension; R40.20 Unspecified coma; T79.6XXA Traumatic ischemia of muscle, initial encounter; I46.8 Cardiac arrest due to other underlying condition; Z20.822 Contact with and (suspected) exposure to COVID-19; V89.2XXA Person injured in unspecified motor-vehicle accident, traffic, initial encounter; Y92.89 Other specified places as the place of occurrence of the external cause
CPT/HCPCS: 31624; 36415; 36416; 36600; 70450; 70486; 70498; 71045; 71260; 72125; 74177; 80048; 80053; 80306; 80307; 81001; 82150; 82248; 82550; 82553; 82805; 82977; 83036; 83605; 83690; 83735; 83930; 84100; 84295; 84484; 85007; 85025; 85027; 85384; 85610; 85730; 86850; 86900; 86901; 87070; 87086; 87205; 90715; 93005; 93010; 93306; 94002; 94003; 94640; G0390; J0360; J0690; J0696; J1815; J2060; J2150; J2270; J2405; J2543; J2597; J2704; J3010; J3475; J3480; J3490; J7050; J7070; J7120; J7131; J7620; J7799; P9045; S0028; U0002